=== PATIENT | male | born 1960 | race Caucasian/White ===

== ENCOUNTER 2022-05-28 12:38 | Emergency (ER) | payer OTHER ==
[2022-05-28] MEDS ORDERED: Albuterol Sulfate 2.5 mg/0.5 ml Neb ONE (14:28)
[2022-05-28] MEDS ORDERED: Dexamethasone 4 mg/ml Vial ONE (15:03)
== END 2022-05-28 16:00 ==
LOC: ERS 12:38 → EEVIPCON 12:38 → ERS 16:00
DX: J44.1 Chronic obstructive pulmonary disease with (acute) exacerbation (principal); I10 Essential (primary) hypertension
CPT/HCPCS: 71045; 93005; J1100; J7611